=== PATIENT | male | born 1990 | race Caucasian/White ===

== ENCOUNTER 2021-05-27 19:15 | Emergency (ER) | payer BC, SELFPAY ==
[2021-05-27 19:16] VITALS: BP 136/83; PULSE 58; RESP 14; TEMP 37; O2SAT 100; BMI 21.5
[2021-05-27 19:22] VITALS: BP 136/83; PULSE 69; RESP 16; TEMP 37; O2SAT 98
--- NOTE | 2021-05-27 20:25 | CT_ITS ---
INDICATION: Kidney Stone EXAMINATION: CT Abdomen And Pelvis W/O Contrast Injection TECHNIQUE: Helically acquired images were obtained of the abdomen and pelvis without the use of IV contrast. A radiation dose optimization technique was used for this scan. Oral contrast: None. COMPARISON: 03/14/2010 FINDINGS: Evaluation of the solid organs and vascular structures is limited without intravenous contrast. Visualized lung bases: Unremarkable Liver: Unremarkable Gallbladder: Unremarkable Spleen: Unremarkable Pancreas: Unremarkable Adrenal Glands: Unremarkable Kidneys: Minimal left hydroureteronephrosis due to a obstructing 2 mm stone seen at the left ureterovesical junction. There is also a 3 mm nonobstructing stone in the right upper pole. Vasculature: Unremarkable GI Tract: Unremarkable Lymphadenopathy: None Peritoneum: No ascites. Bladder: Unremarkable Reproductive organs: Unremarkable Bones/Soft tissues: No suspicious osseous or soft tissue lesions CT/Abdomen/Pelvis without Cont IMPRESSION: Minimal left hydroureteronephrosis due to a obstructing 2 mm stone seen at the left ureterovesical junction. There is also a 3 mm nonobstructing stone in the right upper pole. Electronically Signed: Diaz Jimenez MD at 21:29 EDT Tel , Service support ,
--- NOTE | 2021-05-27 20:26 | EX.ED.DYSGE1 ---
HPI History of Present Illness Chief Complaint: Complaint Informant: patient Narrative Narrative: Patient is a 30-year-old male with history of kidney stones today with sudden onset of left-sided flank pain. He states started on 5 PM today. He not take any for pain prior to arrival. States he feels like his prior kidney stone. The pain is been waxing and waning in intensity. Had no associated vomiting, but does have some nausea. Does not radiate. Patient states his prior kidney stone he passed on its own. He denies any associated hematuria or dysuria. Has history of appendectomy. No other complaints at this time. [facility] Medical History Kidney stone Home Medications hydrocodone-acetaminophen 1 tab PO Q8H PRN 2 Days #6 tab 05/27/21 [Rx Last Taken Unknown] ibuprofen 600 mg PO Q8H PRN PRN #20 tab 05/27/21 [Rx Last Taken Unknown] ondansetron HCl [Zofran] 4 mg PO Q8H PRN #14 tab 05/27/21 [Rx Last Taken Unknown] tamsulosin [Flomax] 0.4 mg PO DAILY #7 cap 05/27/21 [Rx Last Taken Unknown] Allergy/AdvReac Type Severity Reaction Status Date / Time No Known Allergies Allergy Verified 05/27/21 19:23 Surgical History Hx of appendectomy Social History Smoking Status: Never smoker ROS ROS ED Constitutional Constitutional ED: Denies chills, fever(s) or malaise Eyes Eyes: Denies blurry vision or loss of vision ENT ENT ED: Denies rhinorrhea or sore throat Cardiovascular Cardiovascular: Denies chest pain or dizziness Respiratory/Chest Respiratory/Chest: Denies cough or dyspnea Gastrointestinal Gastrointestinal: Reports abdominal pain and nausea; Denies vomiting Genitourinary Genitourinary ED: Denies dysuria or hematuria Musculoskeletal Musculoskeletal: Reports back pain; Denies arthralgias or myalgias Integumentary Denies rash or wounds Neurologic Neurologic: Denies focal weakness or headache(s) Psychiatric Psychiatric: Denies anxiety or behavioral changes EXAM Physical Exam Const Vital Signs: 05/27/21 19:16 05/27/21 19:22 05/27/21 20:43 Temperature 98.6 F 98.6 F 98.4 F Temperature Source Temporal Temporal Temporal Pulse Rate 58 L 69 55 L Respiratory Rate 14 16 15 Blood Pressure 136/83 H 136/83 H 121/84 H Blood Pressure Mean 100 100 96 Pulse Ox 100 98 98 Oxygen Delivery Method Room Air Room Air Room Air 05/27/21 22:09 Temperature 97.9 F Temperature Source Temporal Pulse Rate 57 L Respiratory Rate 18 Blood Pressure 124/79 H Blood Pressure Mean 94 Pulse Ox 99 Oxygen Delivery Method Positive well nourished, well developed and no apparent distress General Appearance ED: well developed HEENT Reports normocephalic and moist mucous membranes atraumatic; Negative for trauma Nose: no nasal discharge External Ear: external ears normal Mouth ED: Yes moist mucous membranes normal Eyes PERRL and EOMs intact bilaterally Neck full ROM, supple and no meningeal signs Chest Wall inspection of chest normal Resp normal respiratory effort and normal air movement Cardio regular rate and regular rhythm GI normal to inspection, nondistended, normoactive bowel sounds and non-tender Palpation: soft Back/Spine General Back: CVA tenderness left Extremity normal to inspection and full ROM Neuro oriented x3 and no focal motor deficits Sensorium / Orientation: alert Motor Exam: Negative for general weakness Psych mental status grossly normal and thought process normal Psych Narrative: Poor eye contact during exam Skin no rashes or lesions noted and no wounds MDM MDM MDM Narrative Medical decision making narrative: Evaluated for sudden onset of left-sided flank pain. It is been constant for the past few hours. Patient is a CVA tenderness but otherwise appears nontoxic and in no acute distress. Vital signs are significant only for mild bradycardia. I suspect it is physiologic given his age and overall health. CBC shows a mild leukocytosis of 13.0. BMP is normal. CT the abdomen pelvis shows minimal left hydroureter nephrosis as well as a 2 mm obstructing stone at the left UVJ. I suspect this is because of his presentation today. Patient is given Toradol and IV fluids in the ER. He declines any nausea medicine or anything stronger for pain. He will be discharged home with a course of pain medication, Flomax and Zofran. He is referred to urology for outpatient follow-up. Patient is counseled on signs and symptoms requiring return to the emergency room. Patient verbalizes agreement and understand this plan. Patient discharged home in stable and improved condition. Lab Data Attestation: I reviewed the patient's lab results. Labs: Laboratory Results - last 24 hr 05/27/21 05/27/21 05/27/21 20:00 20:00 21:50 WBC 13.0 H RBC 4.83 Hgb 14.1 Hct 43.0 MCV 89.0 MCH 29.2 MCHC 32.8 RDW Std Deviation 41.1 RDW Coeff of Mauri 12.4 Plt Count 271 MPV 9.5 Immature Gran % (Auto) 0.300 Neut % (Auto) 80.3 H Lymph % (Auto) 12.8 L [place] % (Auto) 5.9 Eos % (Auto) 0.5 Baso % (Auto) 0.2 Absolute Neuts (auto) 10.4 H Absolute Lymphs (auto) 1.66 Nucleated RBC % 0 Sodium 136 Potassium 3.4 L Chloride 103 Carbon Dioxide 28.0 Anion Gap 5 BUN 10 Creatinine 1.24 Estim Creat Clear Calc 84.03 Est GFR (MDRD) Af Amer 88 Est GFR (MDRD) Non-Af 72 BUN/Creatinine Ratio 8.1 L Glucose 119 H Calcium 9.0 Urine Color Yellow Urine Clarity Clear Urine pH 6.5 Ur Specific [place] 1.015 Urine Protein 15 H Urine Glucose (UA) Normal Urine Ketones Negative Urine Occult Blood 250 H Urine Nitrite Negative Urine Bilirubin Negative Urine Urobilinogen Normal Ur Leukocyte Esterase Negative Urine RBC 0-5 SEEN Urine WBC 0-5 SEEN Ur Squamous Epith Cells 0 SEEN Urine Bacteria 0 SEEN Urine Mucus 0 SEEN Radiography Diagnostic Testing: Radiology Impression Abdomen/Pelvis CT 05/27/21 20:25 IMPRESSION: Minimal left hydroureteronephrosis due to a obstructing 2 mm stone seen at the left ureterovesical junction. There is also a 3 mm nonobstructing stone in the right upper pole. Electronically Signed: Diaz Jimenez MD at 21:29 EDT Tel , Service support , Discharge Plan Triage Chief Complaint: Complaint ED Provider: Sondra Plaza Dx/Rx/DC Orders Clinical Impression: Ureterolithiasis, Flank pain, acute Instructions: ED Kidney Stone w/ Colic Prescriptions: New hydrocodone-acetaminophen 5-325 mg tablet 1 tab PO Q8H PRN (Reason: pain) 2 Days Qty: 6 RF: 0 tamsulosin [Flomax] 0.4 mg capsule 0.4 mg PO DAILY Qty: 7 RF: 0 ibuprofen 600 mg tablet 600 mg PO Q8H PRN PRN (Reason: fever or pain) Qty: 20 RF: 0 ondansetron HCl [Zofran] 4 mg tablet 4 mg PO Q8H PRN (Reason: nausea and vomiting) Qty: 14 RF: 0 Primary Care Provider: Care Physician,No Primary Referrals: Jeremias Sosa MD [STAFF PHYSICIAN] - Care Physician,No Primary [Primary Care Provider] - Disposition Disposition: Home, Self Care Discharge Date/Time: 05/27/21 22:10
[2021-05-27] MEDS: Ketorolac 15 MG/ML Vial IV (20:41)
[2021-05-27] MEDS: 0.9% Normal Saline 1,000 ML 999 ML IV (20:41)
[2021-05-27 20:43] VITALS: BP 121/84; PULSE 55; RESP 15; TEMP 36.9; O2SAT 98
[2021-05-27 20:46] LABS: Absolute Lymphocyte Count 1.66 X10^3/uL (0.83-4.51); Absolute Neutrophil Count 10.4 X10^3/uL (2.0-7.7); Basophil# 0.03 X10^3/uL; Basophil% 0.2 % (0-1); Eosinophil# 0.06 X10^3/uL; Eosinophils% 0.5 % (0-5); Hemoglobin 14.1 g/dL (13.0-16.5); Lymphocyte # 1.66 X10^3/ul (0.83-4.51); Lymphocyte % 12.8 % (19-41); Mean Corp Hgb Conc 32.8 g/dL (32-36); Mean Corpuscular Hgb 29.2 pg (27.0-32.0); Mean Platelet Vol. 9.5 fl (6.2-12.0); Monocyte# 0.76 X10^3/uL; Monocyte% 5.9 % (0-10); NRBC Flagged by Analyzer 0 % (0-5); Neutrophil # 10.43 X10^3/uL (2.7-7.7); Neutrophil % 80.3 % (47-70); Platelet Count 271 K/mm3 (150-450); RBC Distribution Width CV 12.4 % (11.6-14.6); RBC Distribution Width SD 41.1 fl (35.1-43.9); Red Blood Count 4.83 M/mm3 (4.6-6.2)
[2021-05-27 20:58] LABS: Anion Gap 5 (5-15); BUN 10 mg/dL (7-18); BUN/Creat Ratio 8.1 RATIO (10-20); Chloride 103 mmol/L (98-107); Creatinine, Serum 1.24 mg/dL (0.70-1.30); EST Glomerular Filtration Rate 72 mL/min (>60); Est Glom Filt Rate - Afr Amer 88 mL/min (>60); Estimated Creatinine Clearance 84.03 ml/min; Glucose 119 mg/dL (74-106); Potassium 3.4 mmol/L (3.5-5.1); Sodium Level 136 mmol/L (136-145)
[2021-05-27 22:07] LABS: Bacteria 0 SEEN /hpf (None Seen); Mucous, Urine 0 SEEN /hpf (<or=2+); Squamous Epithelial Cells - UA 0 SEEN /hpf (0-5)
[2021-05-27 22:08] LABS: Color, Urine Yellow (Yellow); Glucose, Dipstick Normal (Normal); Ketone-Dipstick Negative (Negative); Leukocyte Esterase-Dipstick Negative /ul (Negative); Nitrite-Dipstick Negative (Negative); Occult Blood-Urine 250 /ul (Negative); Protein-Dipstick 15 mg/dl (Negative); Specific Gravity, Urine 1.015 (1.002-1.030); Urine Bilirubin Dipstick Negative (Negative); Urine Clarity Clear (Clear); Urine Urobilinogen Normal (Normal); Urine pH 6.5 (5.0 - 8.0)
[2021-05-27 22:09] VITALS: BP 124/79; PULSE 57; RESP 18; TEMP 36.6; O2SAT 99
[2021-05-27 22:17] LABS: Red Blood Cells-Urine 0-5 SEEN /hpf (0-5); White Blood Cells 0-5 SEEN /hpf (0-5)
== END 2021-05-27 22:10 | disposition home or self-care (01) ==
PROVIDERS: Emergency Provider Emergency Medicine
DX: N20.1 Calculus of ureter (principal); R10.9 Unspecified abdominal pain; Z87.442 Personal history of urinary calculi
CPT/HCPCS: 74176; 80048; 81001; 85025; 96374; 99285; J7030; A4216

== ENCOUNTER 2025-08-17 13:57 | Emergency (ER) | payer BC, SELFPAY ==
[2025-08-17 13:57] VITALS: BP 183/80; PULSE 84; RESP 16; TEMP 36.4; O2SAT 100; BMI 28.1
--- NOTE | 2025-08-17 14:21 | CT_ITS ---
PROCEDURE: ABDOMEN/PELVIS WITHOUT CONT 08/17/2025 REASON FOR EXAM: RIGHT FLANK PAIN TECHNIQUE: Procedure Code: [id number] Modality: CT Procedure: ABDOMEN/PELVIS WITHOUT CONT Noncontrast technique limits evaluation of the abdominal and pelvic viscera. Coronal and Sagittal reconstruction series were provided. One or more dose reduction techniques were used (e.g., Automated exposure control, adjustment of the mA and/or kV according to patient size, use of iterative reconstruction technique). RADIATION DOSE SUMMARY: DLP: 279 mGycm COMPARISON: CT from 05/27/2021 FINDINGS: Limited sections of the lung bases demonstrate no focal pulmonary mass or consolidations. The liver, spleen, pancreas, and both adrenal glands demonstrate no acute findings. The gallbladder is unremarkable. Tiny hiatal hernia; otherwise stomach is unremarkable. The small bowel loops are not dilated. The appendix is surgically removed. No colonic obstruction. There is no free air or significant free fluid. 3 mm obstructive stone at the proximal right ureter with associated [id number] hydronephrosis. 1.4 cm hypodensity within the right kidney likely a cyst although focal pyelonephritis is not entirely excluded. Question tiny nonobstructive stones within the left ureter without evidence of obstruction/hydronephrosis. Mildly thickened urinary bladder wall which may reflect cystitis vs nondistention; consider correlation with urinalysis. The pelvic structures are intact. There is no solid pelvic mass. No significant lymphadenopathy. The aorta and IVC demonstrate no acute findings. Visualized osseous structures demonstrate no acute abnormality. CT/Abdomen/Pelvis without Cont IMPRESSION: 3 mm obstructive stone at the proximal right ureter with associated mild-to-mod erate hydronephrosis. 1.4 cm hypodensity within the right kidney likely a cyst although focal pyelone phritis is not entirely excluded. Mildly thickened urinary bladder wall which may reflect cystitis vs nondistenti on; consider correlation with urinalysis. Reading Location: [id number]
--- NOTE | 2025-08-17 14:22 | EX.ED.DYSGE1 ---
HPI <Dr. Homer Mccann DO - Last Filed: 08/17/25 16:57> History of Present Illness Chief Complaint: Flank Pain Informant: patient Onset/Context/Timing Onset: Hours (3) Context: Sudden Onset Timing: Continuous Quality: Sharp Location: Right flank Worsened by: Releasing the pressure Relieved by: Pressure Narrative Narrative: Patient presents with right flank pain that began approximately 3 hours prior to arrival. Patient states it began rather suddenly. Patient describes it as sharp. Patient states that his over the right flank area. Patient states it is better when he is able to hold pressure over the area. Patient states it is worse when he releases the pressure. Patient admits to some nausea but denies any vomiting. Patient denies any fevers or chills. Patient denies any dysuria, frequency, or hematuria. PFSH <Dr. Homer Mccann, - Last Filed: 08/17/25 16:57> [facility], [facility] Medical History Kidney stone Home Medications ?Medication ?Instructions ?Recorded ?Last Taken ?Type hydrocodone-acetaminophen 5-325mg 1 tab PO Q8H PRN pain 2 days #6 05/27/21 Unknown Rx 5mg-325mg tabs ibuprofen 600 mg tablet 600 mg PO Q8H PRN PRN fever or 05/27/21 Unknown Rx pain #20 tabs ondansetron HCl 4 mg tablet 4 mg PO Q8H PRN nausea and 05/27/21 Unknown Rx (Zofran) vomiting #14 tabs tamsulosin 0.4 mg capsule (Flomax) 0.4 mg PO DAILY #7 caps 05/27/21 Unknown Rx hydrocodone-acetaminophen 5-325mg 1 tab PO Q6H PRN PRN Pain 3 days 08/17/25 Unknown Rx 5mg-325mg #10 TABLETS Allergy/AdvReac Type Severity Reaction Status Date / Time No Known Allergies Allergy Verified 08/17/25 13:58 Surgical History Hx of appendectomy Social History (Updated 08/17/25 @ 15:[address] Homer Mccann DO) Smoking Status: Never smoker substance use type: marijuana ROS <Dr. Homer Mccann DO - Last Filed: 08/17/25 16:57> ROS ED Constitutional Constitutional ED: Denies chills or fever(s) Eyes Eyes: Denies blurry vision or change in vision ENT ENT ED: Denies rhinorrhea or sore throat Cardiovascular Cardiovascular: Denies chest pain or palpitations Respiratory/Chest Respiratory/Chest: Denies cough or dyspnea Gastrointestinal Gastrointestinal: Reports nausea; Denies vomiting Genitourinary Genitourinary ED: Denies dysuria or hematuria Musculoskeletal Musculoskeletal: Reports back pain; Denies neck pain Integumentary Denies abscess or rash Neurologic Neurologic: Denies headache(s) or weakness Allergic/Immunologic Allergic/Immunologic ED: Denies mouth swelling or urticaria EXAM <Dr. Homer Mccann, DO - Last Filed: 08/17/25 16:57> Physical Exam Const Vital Signs: 08/17/25 13:57 08/17/25 16:00 08/17/25 18:00 Temperature 97.6 F L Temperature Source Temporal Pulse Rate 84 87 Respiratory Rate 16 16 Blood Pressure 183/80 H 132/79 H 137/88 H Blood Pressure Mean 114 96 104 Pulse Ox 100 99 Oxygen Delivery Method Room Air Positive well nourished and well developed General Appearance ED: well developed and NAD HEENT Reports moist mucous membranes Neck supple and no JVD Resp normal respiratory effort and clear to auscultation bilaterally Cardio regular rate and regular rhythm GI non-tender and non-distended Palpation: soft Back/Spine General Back: CVA tenderness right Neuro oriented x3, CN's II-XII intact bilaterally and no sensory deficits noted Sensorium / Orientation: alert Motor Exam: strength 5/5 throughout Psych mental status grossly normal <Dr. Foreign White MD - Last Filed: 08/17/25 18:24> Physical Exam Const Vital Signs: 08/17/25 13:57 08/17/25 16:00 08/17/25 18:00 Temperature 97.6 F L Temperature Source Temporal Pulse Rate 84 87 Respiratory Rate 16 16 Blood Pressure 183/80 H 132/79 H 137/88 H Blood Pressure Mean 114 96 104 Pulse Ox 100 99 Oxygen Delivery Method Room Air MDM <Dr. Homer Mccann DO - Last Filed: 08/17/25 16:57> MDM MDM Narrative Medical decision making narrative: Differential diagnosis includes ureteral calculus, pyelonephritis, colitis, gastroenteritis, appendicitis, and mesenteric adenitis. CT scan of the abdomen and pelvis will be obtained to assess for ureteral calculus, pyelonephritis, and appendicitis. CBC will be obtained to assess for leukocytosis and anemia. Basic metabolic profile will be obtained to assess for electrolyte abnormality and renal function. Urinalysis will be obtained to assess for urinary tract infection and hematuria. Lab Data Attestation: I reviewed the patient's lab results. Lab results narrative: CBC was reviewed and was within normal limits. Basic metabolic profile was reviewed. Glucose was mildly elevated at 150. The remainder is within normal limits. Labs: Laboratory Results - last 24 hr 08/17/25 08/17/25 14:08 17:40 WBC 9.1 RBC 5.18 Hgb 15.2 Hct 45.1 MCV 87.1 MCH 29.3 MCHC 33.7 RDW Std Deviation 38.7 RDW Coeff of Mauri 12.1 Plt Count 350 MPV 9.6 Immature Gran % (Auto) 0.300 Neut % (Auto) 40.7 L Lymph % (Auto) 46.4 H [place] % (Auto) 7.1 Eos % (Auto) 4.9 Baso % (Auto) 0.6 Absolute Neuts (auto) 3.7 Absolute Lymphs (auto) 4.20 Nucleated RBC % 0 Sodium 140 Potassium 3.6 Chloride 101 Carbon Dioxide 25.9 Anion Gap 14 BUN 12 Creatinine 1.19 Estim Creat Clear Calc 97.26 Est GFR (MDRD) Non-Af 82 BUN/Creatinine Ratio 10.0 Glucose 150 H Calcium 9.3 Urine Color Straw Urine Clarity Clear Urine pH 7.0 Ur Specific [place] 1.010 Urine Protein 15 H Urine Glucose (UA) Normal Urine Ketones Negative Urine Occult Blood 150 H Urine Nitrite Negative Urine Bilirubin Negative Urine Urobilinogen Normal Ur Leukocyte Esterase Negative Urine RBC 5-10 SEEN Urine WBC 0-5 SEEN Ur Squamous Epith Cells 0-5 SEEN Urine Bacteria RARE Urine Mucus 0 SEEN Radiography Diagnostic Testing: Clinical Impression(s) from Imaging Studies Abdomen/Pelvis CT 08/17/25 14:21 IMPRESSION: 3 mm obstructive stone at the proximal right ureter with associated [id number] hydronephrosis. 1.4 cm hypodensity within the right kidney likely a cyst although focal pyelonephritis is not entirely excluded. Mildly thickened urinary bladder wall which may reflect cystitis vs nondistention; consider correlation with urinalysis. Reading Location: [facility] CT scan of the abdomen and pelvis was obtained. There is a 3 mm obstructive stone at the right proximal ureter with mild to moderate hydronephrosis. There is a 1.4 cm hypodensity within the right kidney that is likely a cyst. There is a mildly thickened urinary bladder. There is no free air or free fluid. This was interpreted by the radiologist. I also independently reviewed the images and noted the proximal ureteral calculus. Treatment and Re-Evaluation :: Patient was given IV fluids, morphine, and Zofran initially. Patient had further vomiting and pain after this. Patient was given a repeat dose of morphine along with Toradol and Phenergan. Patient physician pending urinalysis. Patient was given a prescription for Echo. <Dr. Foreign White MD - Last Filed: 08/17/25 18:24> [facility] Lab Data Labs: Laboratory Results - last 24 hr 08/17/25 08/17/25 14:08 17:40 WBC 9.1 RBC 5.18 Hgb 15.2 Hct 45.1 MCV 87.1 MCH 29.3 MCHC 33.7 RDW Std Deviation 38.7 RDW Coeff of Mauri 12.1 Plt Count 350 MPV 9.6 Immature Gran % (Auto) 0.300 Neut % (Auto) 40.7 L Lymph % (Auto) 46.4 H [place] % (Auto) 7.1 Eos % (Auto) 4.9 Baso % (Auto) 0.6 Absolute Neuts (auto) 3.7 Absolute Lymphs (auto) 4.20 Nucleated RBC % 0 Sodium 140 Potassium 3.6 Chloride 101 Carbon Dioxide 25.9 Anion Gap 14 BUN 12 Creatinine 1.19 Estim Creat Clear Calc 97.26 Est GFR (MDRD) Non-Af 82 BUN/Creatinine Ratio 10.0 Glucose 150 H Calcium 9.3 Urine Color Straw Urine Clarity Clear Urine pH 7.0 Ur Specific [place] 1.010 Urine Protein 15 H Urine Glucose (UA) Normal Urine Ketones Negative Urine Occult Blood 150 H Urine Nitrite Negative Urine Bilirubin Negative Urine Urobilinogen Normal Ur Leukocyte Esterase Negative Urine RBC 5-10 SEEN Urine WBC 0-5 SEEN Ur Squamous Epith Cells 0-5 SEEN Urine Bacteria RARE Urine Mucus 0 SEEN Urinalysis is unremarkable. Will discharge to home with pain medicine and referral to urology. Radiography Diagnostic Testing: Clinical Impression(s) from Imaging Studies Abdomen/Pelvis CT 08/17/25 14:21 IMPRESSION: 3 mm obstructive stone at the proximal right ureter with associated [id number] hydronephrosis. 1.4 cm hypodensity within the right kidney likely a cyst although focal pyelonephritis is not entirely excluded. Mildly thickened urinary bladder wall which may reflect cystitis vs nondistention; consider correlation with urinalysis. Reading Location: [facility] Discharge Plan Triage Chief Complaint: Flank Pain ED Provider: Homer Mccann Dx/Rx/DC Orders Clinical Impression: Flank pain, acute, Calculus of proximal right ureter Instructions: ED Kidney Stone with Pain Prescriptions: New hydrocodone-acetaminophen 5-325 mg tablet 1 tab PO Q6H PRN PRN (Reason: Pain) 3 Days Qty: 10 0RF No Action hydrocodone-acetaminophen 5-325 mg tablet 1 tab PO Q8H PRN (Reason: pain) 2 Days Qty: 6 0RF tamsulosin [Flomax] 0.4 mg capsule 0.4 mg PO DAILY Qty: 7 0RF ibuprofen 600 mg tablet 600 mg PO Q8H PRN PRN (Reason: fever or pain) Qty: 20 0RF ondansetron HCl [Zofran] 4 mg tablet 4 mg PO Q8H PRN (Reason: nausea and vomiting) Qty: 14 0RF Primary Care Provider: Care Physician,No Primary Referrals: Jeremias Sosa MD [Med Staff - Active Staff, Urology] - 5-7 Days Care Physician,No Primary [Primary Care Provider, Medical] Print Language: Welsh Disposition Disposition: Home, Self Care
[2025-08-17 14:27] LABS: Hematocrit 45.1 % (40-54); Hemoglobin 15.2 g/dL (13.0-16.5); Immature Granulocytes Count 0.030 X10^3/uL (0.0-0.0); Mean Corp Hgb Conc 33.7 g/dL (32-36); Mean Corpuscular Volume 87.1 fL (80-94); Mean Platelet Vol. 9.6 fl (6.2-12.0); NRBC Flagged by Analyzer 0 % (0-5); Platelet Count 350 K/mm3 (150-450); RBC Distribution Width CV 12.1 % (11.6-14.6); RBC Distribution Width SD 38.7 fl (35.1-43.9); Red Blood Count 5.18 M/mm3 (4.6-6.2); White Blood Count 9.1 K/mm3 (4.4-11.0)
[2025-08-17] MEDS: 0.9% Normal Saline (1000mL) 1,000 ML 1000 ML IV (14:29)
--- OUTSIDE RECORDS SUMMARY | 2025-08-17 14:33 | XMS RPT_ITS | CCD ---
Author Organization [facility] [employer] WORK[employer] [facility] Results Test Name Value Interpretation Reference Range Facility Urinalysis, Completeon 05-28 RBC 0-5 SEEN Normal 0-5 [facility] Comment on above: Order Comment: CLEAN CATCH Performed By: #### L 400.0001 #### [facility] Laboratory [address] [place], [address] WBC 0-5 SEEN Normal 0-5 [facility] Comment on above: Order Comment: CLEAN CATCH Performed By: #### L 400.0001 #### [facility] [address] [place], [address] BACTERIA 0 SEEN Normal None Seen [facility] Comment on above: Order Comment: CLEAN CATCH Performed By: #### L 400.0001 #### [facility] [address] [place], [address] EPI,SQUAMOUS 0 SEEN Normal 0-5 [facility] Comment on above: Order Comment: CLEAN CATCH Performed By: #### L 400.0001 #### [facility] [address] [place], [address] Mucus Ql (Urine sed) 0 SEEN Normal [facility] Comment on above: Order Comment: CLEAN CATCH Performed By: #### L 400.0001 #### [facility] [address] [place], [address] Abdomen/Pelvis without Conto n 05-27-2021 Abdomen/Pelvis without Cont [facility] [address] [place] [address] Abdomen/Pelvis without Cont MR#: [id number] Acct: [id number] Name: VICKI PHILIPPE Rep #: [id number] : 1990 M 30 From: Diaz peralta MD PCP: Care Physician,No Primary Status: REG ER Study: Abdomen/Pelvis without Cont Date of Exam: 04/09 Exam# [id number] Ordering Dr: Sondra Plaza DO INDICATION: Kidney Stone EXAMINATION: CT Abdomen And Pelvis W/O Contrast Injection TECHNIQUE: Helically acquired images were obtained of the abdomen and pelvis without the use of IV contrast. A radiation dose optimization technique was used for this scan. Oral contrast: None. COMPARISON: 03/14/2010 FINDINGS: Evaluation of the solid organs and vascular structures is limited without intravenous contrast. Visualized lung bases: Unremarkable Liver: Unremarkable Gallbladder: Unremarkable Spleen: Unremarkable Pancreas: Unremarkable Adrenal Glands: Unremarkable Kidneys: Minimal left hydroureteronephrosis due to a obstructing 2 mm stone seen at the left ureterovesical junction. There is also a 3 mm nonobstructing stone in the right upper pole. Vasculature: Unremarkable GI Tract: Unremarkable Lymphadenopathy: None Peritoneum: No ascites. Bladder: Unremarkable Reproductive organs: Unremarkable Bones/Soft tissues: No suspicious osseous or soft tissue lesions CT/Abdomen/Pelvis without Cont IMPRESSION: Minimal left hydroureteronephrosis due to a obstructing 2 mm stone seen at the left ureterovesical junction. There is also a 3 mm nonobstructing stone in the right upper pole. Electronically Signed: Diaz Jimenez MD at 21:29 EDT Tel , Service support , CC: Dr. Sondra Plaza, ; No Primary Care Physician [employer] Supervisor: Signed Normal [facility] Basic Metabolic Profile (BMP )on 05-27-2021 BUN/CRE 8.1 RATIO Low 10-20 [facility] Comment on above: Performed By: #### L 100.0100, L500.2500 #### [facility] [address], [address] CA,Total 9.0 mg/dL Normal 8.5-10.1 [facility] Comment on above: Performed By: #### L 100.0100, L500.2500 #### [facility] [address] [place], [address] Chloride [Moles/Vol] 103 mmol/L Normal 98-107 [facility] Comment on above: Performed By: #### L 100.0100, L500.2500 #### [facility] [address] [place], [address] CO2 [Moles/Vol] 28.0 mmol/L Normal 21.0-32.0 [facility] Comment on above: Performed By: #### L 100.0100, L500.2500 #### [facility] [address] [place], [address] Creatinine [Mass/Vol] 1.24 mg/dL Normal 0.70-1.30 [facility] Comment on above: Result Comment: The validity of the calculated GFR GFRAA in patients over 70 years has not been determined. Clinical correlation is essential. Performed By: #### L 100.0100, L500.2500 #### [facility] [address] [place], [address] ECRCL 84.03 ml/min Normal [facility] Comment on above: Performed By: #### L 100.0100, L500.2500 #### [facility] [address] [place], [address] EST GFR - AA 88 mL/min Normal >60 [facility] Comment on above: Result Comment: Afri can Austrian GFR Calc Performed By: #### L 100.0100, L500.2500 #### [facility] [address] [place], [address] GAP 5 Normal 5-15 [facility] Comment on above: Performed By: #### L 100.0100, L500.2500 #### [facility] [address] [place], [address] GFR/1.73 sq M.predicted among non-blacks MDRD (S/P/Bld) [Vol rate/Area] 72 mL/min/{1.73_m2} Normal >60 [facility] Comment on above: Result Comment: Non- GFR Calc Performed By: #### L 100.0100, L500.2500 #### [facility] [address] [place], [address] Glucose [Mass/Vol] 119 mg/dL High 74-106 [facility] Comment on above: Result Comment: Fast ing Glucose result from 100 to 125 mg/dL suggests IMPAIRED HOMEOSTASIS per A.D.A. criteria. Please note revised GLUCOSE reference range effective 2017. Performed By: #### L 100.0100, L500.2500 #### [facility] [address] [place], [address] Potassium [Moles/Vol] 3.4 mmol/L Low 3.5-5.1 [facility] Comment on above: Performed By: #### L 100.0100, L500.2500 #### [facility] [address] [place], [address] Sodium [Moles/Vol] 136 mmol/L Normal 136-145 [facility] Comment on above: Performed By: #### L 100.0100, L500.2500 #### [facility] [address] [place], [address] Urea nitrogen [Mass/Vol] 10 mg/dL Normal 7-18 [facility] Comment on above: Performed By: #### L 100.0100, L500.2500 #### [facility] [address] [place], [address] CBC W/Diff, Automatedon 09-0 Absolute Lymph 1.66 X10 3/uL Normal 0.83-4.51 [facility] Comment on above: Performed By: #### L 100.0100, L500.2500 #### [facility] [address] [place], [address] Absolute Neut 10.4 X10 3/uL High 2.0-7.7 [facility] Comment on above: Performed By: #### L 100.0100, L500.2500 #### [facility] [address] [place], [address] Basophils/100 WBC (Bld) 0.2 % Normal 0-1 [facility] Comment on above: Performed By: #### L 100.0100, L500.2500 #### [facility] [address] [place], [address] Eosinophils/100 WBC (Bld) 0.5 % Normal 0-5 [facility] Comment on above: Performed By: #### L 100.0100, L500.2500 #### [facility] [address] [place], [address] Erythrocyte distribution width (RBC) [Ratio] 12.4 % Normal 11.6-14.6 [facility] Comment on above: Performed By: #### L 100.0100, L500.2500 #### [facility] [address] [place], [address] Hematocrit (Bld) [Volume fraction] 43.0 % Normal 40-54 [facility] Comment on above: Performed By: #### L 100.0100, L500.2500 #### [facility] [address] [place], [address] Hemoglobin (Bld) [Mass/Vol] 14.1 g/dL Normal 13.0-16.5 [facility] Comment on above: Performed By: #### L 100.0100, L500.2500 #### [facility] [address] [place], [address] IG% 0.300 Normal 0.0-0.9 [facility] Comment on above: Result Comment: IG% - Immature Granulocytes (promyelocytes, myelocytes and metamyelocytes) > 1% indicates that a LEFT SHIFT is Present. Performed By: #### L 100.0100, L500.2500 #### [facility] [address] [place], [address] Lymphocytes/100 WBC (Bld) 12.8 % Low 19-41 [facility] Comment on above: Performed By: #### L 100.0100, L500.2500 #### [facility] [address] [place], [address] MCH (RBC) [Entitic mass] 29.2 pg Normal 27.0-32.0 [facility] Comment on above: Performed By: #### L 100.0100, L500.2500 #### [facility] [address] [place], [address] MCHC (RBC) [Mass/Vol] 32.8 g/dL Normal 32-36 [facility] Comment on above: Performed By: #### L 100.0100, L500.2500 #### [facility] [address] [place], [address] MCV (RBC) [Entitic vol] 89.0 fL Normal 80-94 [facility] Comment on above: Performed By: #### L 100.0100, L500.2500 #### [facility] [address] [place], [address] Monocytes/100 WBC (Bld) 5.9 % Normal 0-10 [facility] Comment on above: Performed By: #### L 100.0100, L500.2500 #### [facility] [address] [place], [address] Neutrophils/100 WBC (Bld) 80.3 % High 47-70 [facility] Comment on above: Performed By: #### L 100.0100, L500.2500 #### [facility] [address] [place], [address] Nucleated RBC (Bld) [#/Vol] 0 10*3/uL Normal 0-5 [facility] Comment on above: Performed By: #### L 100.0100, L500.2500 #### [facility] [address] [place], [address] Platelet mean volume (Bld) [Entitic vol] 9.5 fL Normal 6.2-12.0 [facility] Comment on above: Performed By: #### L 100.0100, L500.2500 #### [facility] [address] [place], [address] Platelets (Bld) [#/Vol] 271 10*3/uL Normal 150-450 [facility] Comment on above: Performed By: #### L 100.0100, L500.2500 #### [facility] [address] [place], [address] RBC (Bld) [#/Vol] 4.83 10*6/uL Normal 4.6-6.2 [facility] Comment on above: Performed By: #### L 100.0100, L500.2500 #### [facility] [address] [place], [address] RDW SD 41.1 fl Normal 35.1-43.9 [facility] Comment on above: Performed By: #### L 100.0100, L500.2500 #### [facility] [address] [place], [address] WBC (Bld) [#/Vol] 13.0 10*3/uL High 4.4-11.0 [facility] Comment on above: Performed By: #### L 100.0100, L500.2500 #### [facility] [address] [place], [address] Emergency Department Summary on 05-27-2021 Emergency Department Summary [facility] Medical Records Department [address] [place] [address] Emergency Department Summary 05/27/21 MR#: [id number] Acct: [id number] Name: VICKI PHILIPPE Rep #: [id number] : 1990 30 From: Sondra Plaza DO PCP: Care Physician,No Primary Status:DEP ER Location: ED HPI History of Present Illness Chief Complaint: Complaint Informant: patient Narrative Narrative: Patient is a 30-year-old male with history of kidney stones today with sudden onset of left-sided flank pain. He states started on 5 PM today. He not take any for pain prior to arrival. States he feels like his prior kidney stone. The pain is been waxing and waning in intensity. Had no associated vomiting, but does have some nausea. Does not radiate. Patient states his prior kidney stone he passed on its own. He denies any associated hematuria or dysuria. Has history of appendectomy. No other complaints at this time. PFSH PFSH Medical History Kidney stone Home Medications hydrocodone-acetaminophen 1 tab PO Q8H PRN 2 Days #6 tab 05/27/21 [Rx Last Taken Unknown] ibuprofen 600 mg PO Q8H PRN PRN #20 tab 05/27/21 [Rx Last Taken Unknown] ondansetron HCl [Zofran] 4 mg PO Q8H PRN #14 tab 05/27/21 [Rx Last Taken Unknown] tamsulosin [Flomax] 0.4 mg PO DAILY #7 cap 05/27/21 [Rx Last Taken Unknown] Allergy/AdvReac Type Severity Reaction Status Date / Time No Known Allergies Allergy Verified 05/27/21 19:23 Surgical History Hx of appendectomy Social History Smoking Status: Never smoker ROS ROS ED Constitutional Constitutional ED: Denies chills, fever(s) or malaise Eyes Eyes: Denies blurry vision or loss of vision ENT ENT ED: Denies rhinorrhea or sore throat Cardiovascular Cardiovascular: Denies chest pain or dizziness Respiratory/Chest Respiratory/Chest: Denies cough or dyspnea Gastrointestinal Gastrointestinal: Reports abdominal pain and nausea; Denies vomiting Genitourinary Genitourinary ED: Denies dysuria or hematuria Musculoskeletal Musculoskeletal: Reports back pain; Denies arthralgias or myalgias Integumentary Denies rash or wounds Neurologic Neurologic: Denies focal weakness or headache(s) Psychiatric Psychiatric: Denies anxiety or behavioral changes EXAM Physical Exam Const Vital Signs: 05/27/21 19:16 05/27/21 19:22 05/27/21 20:43 Temperature 98.6 F 98.6 F 98.4 F Temperature Source Temporal Temporal Temporal Pulse Rate 58 L 69 55 L Respiratory Rate 14 16 15 Blood Pressure 136/83 H 136/83 H 121/84 H Blood Pressure Mean 100 100 96 Pulse Ox 100 98 98 Oxygen Delivery Method Room Air Room Air Room Air 05/27/21 22:09 Temperature 97.9 F Temperature Source Temporal Pulse Rate 57 L Respiratory Rate 18 Blood Pressure 124/79 H Blood Pressure Mean 94 Pulse Ox 99 Oxygen Delivery Method Positive well nourished, well developed and no apparent distress General Appearance ED: well developed HEENT Reports normocephalic and moist mucous membranes atraumatic; Negative for trauma Nose: no nasal discharge External Ear: external ears normal Mouth ED: Yes moist mucous membranes normal Eyes PERRL and EOMs intact bilaterally Neck full ROM, supple and no meningeal signs Chest Wall inspection of chest normal Resp normal respiratory effort and normal air movement Cardio regular rate and regular rhythm GI normal to inspection, nondistended, normoactive bowel sounds and non-tender Palpation: soft Back/Spine General Back: CVA tenderness left Extremity normal to inspection and full ROM Neuro oriented x3 and no focal motor deficits Sensorium / Orientation: alert Motor Exam: Negative for general weakness Psych mental status grossly normal and thought process normal Psych Narrative: Poor eye contact during exam Skin no rashes or lesions noted and no wounds MDM MDM MDM Narrative Medical decision making narrative: Evaluated for sudden onset of left-sided flank pain. It is been constant for the past few hours. Patient is a CVA tenderness but otherwise appears nontoxic and in no acute distress. Vital signs are significant only for mild bradycardia. I suspect it is physiologic given his age and overall health. CBC shows a mild leukocytosis of 13.0. BMP is normal. CT the abdomen pelvis shows minimal left hydroureter nephrosis as well as a 2 mm obstructing stone at the left UVJ. I suspect this is because of his presentation today. Patient is given Toradol and IV fluids in the ER. He declines any nausea medicine or anything stronger for pain. He will be discharged home with a course of pain medication, Flomax and Zofran. (more content not included)... Normal [facility] Summary Purpose Family History No Family History Records Found Advance Directives No Advanced Directives Records Found Additional Source Comments (unrecognized sect ion and content) No Status Records Found INFORMATION SOURCE (unrecogn ized section and content) DATE CREATED AUTHOR 10/20/2021 [facility] FOR RECORDS PERTAINING TO PATIENTS WHO ARE OR HAVE BEEN ENROLLED IN A CHEMICAL DEPENDENCY/SUBSTANCEABUSE PROGRAM, SOME INFORMATION MAY BE OMITTED. This clinical summary was aggregated from multiple sources. Caution should be exercised in using it in the provision of clinical care. This summary normalizes information from multiple sources, and as a consequence, information in this document may materially change the coding, format and clinical context of patient data. In addition, data may be omitted in some cases. CLINICAL DECISIONS SHOULD BE BASED ON THE PRIMARY CLINICAL RECORDS. [employer] provides no warranty or guarantee of the accuracy or completeness of information in this document.
[2025-08-17 14:45] LABS: Anion Gap 14 (5-15); BUN 12 mg/dL (4-19); BUN/Creat Ratio 10.0 RATIO (10-20); Calcium,Total 9.3 mg/dL (7.6-11.0); Carbon Dioxide 25.9 mmol/L (21.0-32.0); Chloride 101 mmol/L (98-108); Estimated Creatinine Clearance 97.26 ml/min (50-250); Glucose 150 mg/dL (70-99); Potassium 3.6 mmol/L (3.3-5.1)
[2025-08-17] MEDS: proMETHazine 25 MG/ML Syringe 6.25 MG IM (15:29)
[2025-08-17] MEDS: Ketorolac 30 MG/ML Syringe IV (15:30)
[2025-08-17 16:00] VITALS: BP 132/79
--- NOTE | 2025-08-17 17:13 | CM.ED ---
Social Work Reason for visit: No PCP Patient verified that he does not currently have a PCP. Patient was given [facility] provider list and Dont Wait brochure. Patient accepting of resources. No further needs at this time. Shelly Nance, [employer] SALES CLERK, SALES SOLUTIONS REPRESENTATIVE
[2025-08-17 17:45] LABS: Mucous, Urine 0 SEEN /hpf (<or=2+)
[2025-08-17 18:00] VITALS: BP 137/88; PULSE 87; RESP 16; O2SAT 99
[2025-08-17 18:05] LABS: Color, Urine Straw (Yellow); Glucose, Dipstick Normal (Normal); Ketone-Dipstick Negative (Negative); Leukocyte Esterase-Dipstick Negative /ul (Negative); Nitrite-Dipstick Negative (Negative); Occult Blood-Urine 150 /ul (Negative); Protein-Dipstick 15 mg/dl (Negative); Specific Gravity, Urine 1.010 (1.002-1.030); Urine Bilirubin Dipstick Negative (Negative)
[2025-08-17 18:17] LABS: Red Blood Cells-Urine 5-10 SEEN /hpf (0-5)
[2025-08-17 18:18] LABS: Squamous Epithelial Cells - UA 0-5 SEEN /hpf (0-5)
[2025-08-17 18:32] VITALS: BP 120/79; PULSE 64; RESP 14; TEMP 36.6; O2SAT 99
== END 2025-08-17 18:33 | disposition home or self-care (01) ==
PROVIDERS: Emergency Provider Emergency Medicine; Visit Provider Emergency Medicine
DX: N13.2 Hydronephrosis with renal and ureteral calculous obstruction (principal)
CPT/HCPCS: 74176; 80048; 81001; 85025; 96361; 96372; 96374; 96375; 96376; 99283; A4216; J2405